=== PATIENT | female | born 1990 | race Two or more races ===

== ENCOUNTER 2019-08-12 08:46 | Emergency (ER) | payer MEDICAID, OTHER ==
[~2019-08-12] VITALS: Ht 165.1 cm; Wt 117.9 kg
[2019-08-12 08:58] VITALS: BP 102/69
== END 2019-08-12 10:50 | disposition home or self-care (01) ==
LOC: ER 08:49
DX: R42 Dizziness and giddiness (principal); R11.2 Nausea with vomiting, unspecified; M54.2 Cervicalgia; J45.909 Unspecified asthma, uncomplicated
CPT/HCPCS: 70450; 93005

== ENCOUNTER 2023-01-26 17:27 | Emergency (ER) | payer MEDICAID ==
[~2023-01-26] VITALS: Ht 162.6 cm; Wt 104.5 kg
[2023-01-26 17:35] VITALS: BP 118/65
== END 2023-01-26 21:12 | disposition left against medical advice (07) ==
LOC: ER 17:27 → EDBD 17:27 → ER 21:12
DX: R07.89 Other chest pain (principal); M25.562 Pain in left knee; Z53.21 Procedure and treatment not carried out due to patient leaving prior to being seen by health care provider; V43.52XA Car driver injured in collision with other type car in traffic accident, initial encounter; Y93.89 Activity, other specified; Y92.410 Unspecified street and highway as the place of occurrence of the external cause; Y99.8 Other external cause status
CPT/HCPCS: 71045; 93005